=== PATIENT | male | born 2000 | race Two or more races ===

== ENCOUNTER 2021-03-28 13:56 | Emergency (ER) | payer MEDICAID ==
[~2021-03-28] VITALS: Ht 172.7 cm; Wt 149.7 kg
[2021-03-28 14:23] VITALS: BP 129/60
--- NOTE | 2021-03-28 14:27 | NUR ---
right eye blurry vision x 2 days visual acuity done right eye - 20/25 left eye - 20/20
== END 2021-03-28 15:08 | disposition home or self-care (01) ==
LOC: ER 14:00
DX: H57.11 Ocular pain, right eye (principal); H57.89 Other specified disorders of eye and adnexa